=== PATIENT | female | born 1990 | race Caucasian/White ===

== ENCOUNTER 2016-10-15 06:00 | Inpatient (IN) ==
[2016-10-15 07:21] LABS: Basophils % 0.4 %; Eosinophils # 0.1 K/mcL (0.0-0.6); Eosinophils % 1.4 %; Hematocrit 33.5 % (35.3-44.9); Hemoglobin 11.4 g/dL (11.5-15.4); Immature Granulocytes % 0.6 % (0-4); Lymphocytes % 24.9 %; Mean Corpuscular Hemoglobin 30.2 pg (28.0-33.3); Mean Corpuscular Volume 88.9 fL (83.0-100.0); Mean Platelet Volume 11.1 fL (9.4-12.4); Monocytes # 0.7 K/mcL (0.0-1.3); Monocytes % 8.2 %; Neutrophils # 5.2 K/mcL (1.6-8.9); Platelet Count 219 K/mcL (140-400); Red Blood Count 3.77 M/mcL (3.82-4.97); Red Cell Distribution Width 12.4 % (11.5-14.5); Segmented Neutrophils % 64.5 %
--- NOTE | 2016-10-15 07:23 | OB/GYN History & Physical ---
Date of Encounter: 10/15/16 Time of Encounter: 07:09 Assessment and Plan (1) 39 weeks gestation of Current visit: Yes Status: Acute admit for labor and delivery NPO,supportive care continuous monitoring plan for induction of labor and vaginal delivery today pt monitoring for progression of labor (2) Elective induction of labor planned Current visit: Yes Status: Acute plan for vaginal delivery via induction monitor pt for progression of labor (3) Gestational diabetes Current visit: Yes Status: Acute well controlled with diet continue monitoring blood glucose consider repeat glucose challenge Qualifiers: Gestational diabetes mellitus control: diet-controlled Trimester: third trimester Qualified Code(s): O24.410 - Gestational diabetes mellitus in , diet controlled History of Present Illness Chief complaint: induction of labor HPI: Ms. Duffy is a 26 year old female 39.2 week here for induction of labor. Pt states she is having very weak irregular contractions occurring a 2-3x an hour and lasting about 20 seconds that are not causing much discomfort at this time. complicated by gestational diabetes that has been well controlled with diet. Pt denies current STI, but has previous history of infection with chlamydia. She has no concerns at this time. No loss of fluids, vaginal bleeding, discharge. Denies change in vision, CP, SOB, LE edema, N/V/D. Pt of , takes vitamins and denies any other medications. GBS - Hep B - rubella, t.pallidum, varicella immune Past Med Surg Social Fam HX - Past Medical History Medical history: no medical history Psychiatric history: no psych history - Past Surgical History Surgical History: no surgical history - Social History Smoking Status: Never smoker Smokeless Tobacco Status: No Alcohol use: none Drug use: none - Family History Mother Adopted: No Family Member Ethnicity: Non- Living Status: Still Living Hx Family Cardiac Disorders: No Hx Family Respiratory Disorders: No Hx Family Cancer: No Hx Family GI Disorders: No Hx Family Genitourinary Disorders: No Hx Family Endocrine Disorder: No Hx Family Musculoskeletal Disorders: No Hx Family Neuromuscular Disorders: No Hx Family Neurologic Disorders: No Hx Family HEENT Disorders: No Hx Family Autoimmune Disorders: No Hx Family Reproductive Disorders: No Hx Family Psychosocial Disorders: No Hx Family Medical Disorders: No Obstetrical History - Pregnancies : 2 Para: 1 Term: 1 : 0 Ab's: 0 Livin - History/Complications History/Complications: Gestational diabetes in this past infection with chlamydia Medications and Allergies Pnv95/Ferrous Fumarate/FA [ Caplet] 1 tab PO DAILY 10/15/16 [History] Allergies No Known Allergies Allergy (Verified 10/15/16 06:30) Review of System OB All systems PM: reviewed and no additional remarkable complaints except as stated Exam - Constitutional Constitutional: well developed, well nourished, no acute distress, average body habitus - HEENT HEENT: EOMI, Mucus Membranes Moist - Neck Neck exam: full ROM - Lungs Respiratory exam: CTAB - Cardiovascular Cardiovascular exam: RRR - Abdomen Abdomen: Present: bowel sounds normal, gravid - Extremities Extremities exam: warm Deep Tendon Reflex Grade: 2+ Normal - Cervix Dilation: 4 Station: -2 - Uterus Uterus exam: Present: normal size Results Result Diagrams: 10/15/16 06:51 All other labs normal. - VTE Reasons for not Prescribing Prophylaxis: Treatment not Indicated - Low risk for VTE - Attending Attestation I examined this patient and my medical decision-making was reviewed with the HOOKMAN/PA/Advanced Practice Nurse/Resident Physician. I agree with the documented findings, disposition and treatment plan as described except to the extent set forth below.
[2016-10-15] MEDS ORDERED: miSOPROStol 25 MCG TABLET PO SCH (08:00)
--- NOTE | 2016-10-15 09:07 | OB Labor Progress Note ---
Date of Encounter: 10/15/16 Time of Encounter: 09:05 Labor Progress Note - Subjective Subjective: Tolerating contractions well - Vital Signs Vital Signs: stable, afebrile - Cervix Cervix: 4-5/80/-1 - Heart Tones Heart Tones: 140s baseline CAT1 - [place]: every 2-3 mins after 50ug cytotec PO - Interventions Interventions: 39 week diet controlled GDM for induction of labor with cytotec - Plan Plan: continue induction amniotomy in 2-3h I examined this patient and my medical decision-making was reviewed with the VERTICAL LATHE OPERATOR/PA/Advanced Practice Nurse/Resident Physician. I agree with the documented findings, disposition and treatment plan as described except to the extent set forth below.
[2016-10-15] MEDS: Ringers Solution, Lactated 1,000 ML IVC SCH ×2 (11:10→12:23)
--- NOTE | 2016-10-15 11:54 | Anesthesia Evaluation PreOp ---
Date of Encounter: 10/15/16 Time of Encounter: 10:55 - Past History Planned Operation: epidural placement Cardiac History: Denies any Significant Hx Pulmonary History: Denies Any Significant HX DATA CONTROL CLERK SUPERVISOR History: Denies Any Significant HX Other Medical History: Other (gestational diabetes) Anesthesia History: No Prior Anesthetic Complications (vag delivery x 1) : Yes Test: Positive Alcohol Use: none Drug use: none Medications and Allergies Pnv95/Ferrous Fumarate/FA [ Caplet] 1 tab PO DAILY 10/15/16 [History] Allergies No Known Allergies Allergy (Verified 10/15/16 06:30) - Meds/Allergy Pre-op Review Medications Reviewed: Yes Allergies Reviewed: Yes Beta Blockers on Current Med List: No Anesthesia Results - Labs 10/15/16 06:51 Anesthesia Exam 3 Vital Signs Time 1055 BP 117/77 Pulse 110 Resp 16 O2 Sat Height: 66 Weight: 182 pounds NPO (# of Hours): clears Pain Scale: 5 Pain Scale Used: Numeric (1 - 10) - HEENT Pupil (Motor): Pupils equal Mallampati: II Teeth: Normal Oral Opening: Greater than 3 - DATA CONTROL CLERK SUPERVISOR LOC: Oriented DATA CONTROL CLERK SUPERVISOR Motor: Normal RUE, Normal LUE, Normal RLE, Normal LLE DATA CONTROL CLERK SUPERVISOR Sensory: Normal: RUE, LUE, RLE, LLE, Face - Cardiac Rhythm: Regular Murmur: None JVD: No Carotid Bruit: No - Pulmonary Breath Sounds: bilateral Clear Respiratory Effort: Symmetrical Anesthesia Assess/Plan ASA Score: 2 Modified [place] Scale for Level of Consciousness: Cooperative, oriented, and tranquil Anesthetic Plan: Regional Autologous Blood: No Monitoring Plan: Standard Monitors Recovery Plan: Other
[2016-10-15] MEDS ORDERED: *HR* FentaNYL (PF) 100 MCG/2 ML VIAL EP ONE (11:57)
[2016-10-15] MEDS ORDERED: Bupivacaine-MPF 0.25% 10 ML VIAL EP ONE (11:57)
[2016-10-15] MEDS ORDERED: Epidural Premix (fent/bupiv) 110 ML EP SCH (12:00)
[2016-10-15] MEDS ORDERED: *HR* FentaNYL (PF) 100 MCG/2 ML VIAL ONE ×2 (12:12→16:09)
[2016-10-15] MEDS ORDERED: Bupivacaine-MPF 0.25% 10 ML VIAL ONE (12:12)
--- NOTE | 2016-10-15 12:12 | OB Labor Progress Note ---
Date of Encounter: 10/15/16 Time of Encounter: 12:10 Labor Progress Note - Subjective Subjective: The patient is becoming uncomfortable with contractions. She is requesting an epidural - Vital Signs Vital Signs: Afebrile, vital signs stable - Cervix Cervix: 6/80/-2, vertex - Heart Tones Heart Tones: 140s baseline, CAT1 - [place]: Contractions every 2-3 minutes after 1 dose of 50 g of Cytotec at 07 100 - Interventions Interventions: 39 week IUP, A1 diabetes for induction of labor - Plan Plan: Epidural placement followed by amniotomy when stable
[2016-10-15] MEDS ORDERED: Epidural Premix (fent/bupiv) 110 ML EP ONE (12:14)
--- NOTE | 2016-10-15 13:01 | Anesthesia Procedures ---
Date of Encounter: 10/15/16 Time of Encounter: 12:25 Procedures: Anesthesia - Epidural/Spinal Patient ID/Chart reviewed: Yes Patient examined: Yes OB Eval: Gestational age: 39 weeks 2 days OB Eval: : 2 OB Eval: Hx Para: 1 OB Eval: Dilated at (cm): 4 OB Eval: Contractions: Non-stressed pattern Consent Obtained: Yes Supplemental Oxygen: None/Room Air Site Prep: Aseptic Technique, Sterile prep and drape, Povidone-Iodine 1% Patient position: upright Local Anesthetic: Lidocaine 1% Amount of Local Anesthetic used: 3 Touhy Needle Gauge: 18 Touhy Needle Depth (cm): 6 Catheter Depth at Skin (cm): 13 Test Dose (1.5% Lido + Epi): Volume given (mls): 3 Test Dose Result: Negative Loading Dose: 0.25% Marcaine (mls): 6 Loading Dose: Fentanyl (mcg): 100 Loading Dose: Other: 3 ml saline 0.9% pres free Loading Dose Administered: Thru Catheter Infusion Med: 0.125% Bupivacaine w/ 2 mcg/ml Fentanyl Infusion Rate (mls/hr): [address]: Tegaderm, Tape Interspace Used: L3-L4 Loss of Resistance (RENEE): Yes (air) Blood: No CSF: No Paresthesia: No Procedure: 3 Vital Signs Time 1225 start 1238 test 1244 bolus finish 1252 BP 128/64 121/71 123/76 120/71 Pulse 76 86 75 75 Resp 16 16 16 16 O2 Sat 100 100 100 100 heart tones 140 patient tolerated well patient comfortable
--- NOTE | 2016-10-15 13:39 | OB Labor Progress Note ---
Date of Encounter: 10/15/16 Time of Encounter: 13:37 Labor Progress Note - Subjective Subjective: Pt resting comfortably in bed with epidural. - Cervix Cervix: 6/80/-2 - Heart Tones Heart Tones: 135/moderate/+accels/no decels - Interventions Interventions: AROM for clear fluid. - Plan Plan: Continue with current management. GBS-, anticipate
[2016-10-15] MEDS ORDERED: Oxytocin 20 units/ LR 1000 mL 20 UNIT/1,000 ML BAG IVC ONE ×2 (14:42→18:14)
[2016-10-15] MEDS ORDERED: Oxytocin 20 units/ LR 1000 mL 20 UNIT/1,000 ML BAG IVC SCH (14:45)
[2016-10-15] MEDS ORDERED: *HR* Ropivacaine/PF 0.2% 10 ML AMPUL ONE (15:29)
--- NOTE | 2016-10-15 15:37 | OB Labor Progress Note ---
Date of Encounter: 10/15/16 Time of Encounter: 15:35 Labor Progress Note - Subjective Subjective: Pt reports some discomfort in her right lower abdomen. She is otherwise comfortable. - Cervix Cervix: 6-7 - Heart Tones Heart Tones: Category I - Quail Quail: 2-3 minutes - Interventions Interventions: IUPC placed - Plan Plan: Continue to monitor. Anticipate .
--- NOTE | 2016-10-15 15:56 | Anesthesia Progress Note ---
Date of Encounter: 10/15/16 Time of Encounter: 15:35 Anesthesia Note - Note Note: 10/15/16 15:51 patient complaining of right lower quadrant contraction pain. Epidural placement checked ok, sensory level noted at t12 level, bolus dose of ropivicaine 0.2% 10 ml given in 3.33 ml increments, vs stable throughout, heart tones 130-140 3 Vital Signs Time 1535 1540 1545 BP 120/77 121/89 121/75 Pulse 70 70 71 Resp 16 16 16 O2 Sat
[2016-10-15] MEDS ORDERED: Lidocaine/EPI 1:200k 2% PF 20 ML VIAL ONE (16:10)
[2016-10-15] MEDS ORDERED: Lidocaine/EPI 1:100k 1% 30 ML VIAL ONE (16:19)
--- NOTE | 2016-10-15 17:09 | OB/GYN Procedure Note ---
Delivery - Delivery Date: 10/15/16 Provider: Izabel Coleman Intrapartum events: none Delivery induction: misoprostol Delivery augmentation: rupture of membranes Delivery monitor: external FHT, external uterine, internal uterine Anesthesia: epidural Estimated Blood Loss: 100 - Infant (s) A Infant Delivery Date: 10/15/16 Infant Delivery Time: 16:38 Presentation: vertex Position: CRISTI Route of delivery: Gender: Female Viability: Viable Pounds: 6 Ounces: 15 Weight Gram: 3155 kg at 1 minute: 8 at 5 mins: 9 Shoulder Dystocia: encountered Shoulder Dystocia Maneuvers: Dalila maneuver, Stanford Screw maneuver Shoulder dystocia time elapsed: 30 sec Specimens collected: cord blood Placenta: spontaneous, uterine exploration Cord: 3 umbilical vessels - Repair Episiotomy: none Laceration Description: None - Complications Delivery complications: none Delivery comments: Patient complete and pushing with epidural anesthesia with rapid descent and a spontaneous vaginal delivery of a vigorous female infant in CRISTI position weighing 6 lbs. 15 oz. and Apgars of 8 at 1 minute and 9 at 5 minutes. No nuchal cord was palpated. Following delivery of the head the anterior shoulder was wedged against the symphysis despite Dalila maneuver. A Stanford screw maneuver was performed and the shoulder was released and was delivered spontaneously and placed on the maternal abdomen. The cord was clamped and cut after pulsations ceased. Cord blood was obtained. Placenta was delivered spontaneous and intact. No lacerations noted. Both mother and the infant are recovering in the LDR. Estimated blood loss 100 mL, complications none - Disposition Mom disposition: stable in LDR [place] disposition: stable in LDR
[2016-10-15] MEDS ORDERED: Oxytocin 20 units/ LR 1000 mL 20 UNIT/1,000 ML BAG IV SCH (18:14)
[2016-10-15] MEDS ORDERED: Measles/Mumps/Rubella Vacc 0.5 ML VIAL SQ PRN (18:14)
[2016-10-15] MEDS ORDERED: Acetaminophen 325 MG TABLET PO PRN (18:14)
[2016-10-15] MEDS: Ibuprofen 600 MG TABLET PO PRN (20:45)
[2016-10-16 05:52] LABS: Basophils % 0.3 %; Eosinophils # 0.1 K/mcL (0.0-0.6); Eosinophils % 0.8 %; Hematocrit 32.7 % (35.3-44.9); Hemoglobin 11.1 g/dL (11.5-15.4); Immature Granulocytes % 0.8 % (0-4); Immature Platelets 7.6 % (1.1-6.1); Lymphocytes # 1.9 K/mcL (0.6-4.6); Lymphocytes % 16.9 %; Mean Corpuscular HGB Conc 33.9 g/dL (31.6-35.5); Mean Corpuscular Hemoglobin 30.5 pg (28.0-33.3); Mean Corpuscular Volume 89.8 fL (83.0-100.0); Mean Platelet Volume 11.6 fL (9.4-12.4); Monocytes # 0.9 K/mcL (0.0-1.3); Monocytes % 8.1 %; Platelet Count 177 K/mcL (140-400); Red Blood Count 3.64 M/mcL (3.82-4.97); Red Cell Distribution Width 12.5 % (11.5-14.5); Segmented Neutrophils % 73.1 %
--- NOTE | 2016-10-16 07:24 | Anesthesia Progress Note ---
Date of Encounter: 10/15/16 Time of Encounter: 16:13 Anesthesia Note - Note Note: 10/16/16 07:22 bolus given for labor contraction pain, 3 ml 2% lidocine with epi and 50 mcg fentanyl pt stable
[2016-10-16] MEDS ORDERED: Prenatal Vit/FA 1 EACH TABLET PO SCH (09:00)
--- NOTE | 2016-10-16 09:01 | Discharge Summary ---
Date of Encounter: 10/16/16 Time of Encounter: 08:58 - Discharge Diagnosis (1) Vaginal delivery Priority: Primary Status: Acute Comments: Meeting milestones. Appropriate for discharge (2) Elective induction of labor planned Priority: Secondary Status: Acute - Discharge Medications Prescriptions: Ibuprofen [Motrin] 600 mg PO Q6HR PRN #60 tablet PRN Reason: Cramping Breast Pump [BREAST PUMP] 1 each .ROUTE AD #1 each Docusate [Colace] 100 mg PO BID #60 capsule Home Medications: Pnv95/Ferrous Fumarate/FA [ Caplet] 1 tab PO DAILY 10/15/16 [History] Acetaminophen [Tylenol] 650 mg PO Q6HR PRN #0 tablet 10/16/16 [Rx] Breast Pump [BREAST PUMP] 1 each .ROUTE AD #1 each 10/16/16 [Rx] Docusate [Colace] 100 mg PO BID #60 capsule 10/16/16 [Rx] Ferrous Sulfate 325 mg PO DAILY tablet 10/16/16 [Rx] Ibuprofen [Motrin] 600 mg PO Q6HR PRN #60 tablet 10/16/16 [Rx] Measles/Mumps/Rubella Vacc [MMR II Vaccine with Diluent] 0.5 ml SQ AD PRN #0 vial 10/16/16 [Rx] Allergies/Adverse Reactions: Allergies No Known Allergies Allergy (Verified 10/15/16 06:30) Data Procedures and tests throughout hospitalization: Laboratory Tests 10/15/16 10/16/16 06:51 04:01 WBC 8.0 10.9 RBC 3.77 L 3.64 L Hgb 11.4 L 11.1 L Hct 33.5 L 32.7 L MCV 88.9 89.8 MCH 30.2 30.5 MCHC 34.0 33.9 RDW 12.4 12.5 Plt Count 219 177 MPV 11.1 11.6 Immature Gran % 0.6 0.8 Seg Neutrophils % 64.5 73.1 Lymphocytes % 24.9 16.9 Monocytes % 8.2 8.1 Eosinophils % 1.4 0.8 Basophils % 0.4 0.3 Neutrophils # 5.2 8.0 Lymphocytes # 2.0 1.9 Monocytes # 0.7 0.9 Eosinophils # 0.1 0.1 Basophils # 0.0 0.0 Immature Plt Fraction 7.6 H Labs on day of discharge: Labs from last 24 hours 10/16/16 04:01 WBC 10.9 RBC 3.64 L Hgb 11.1 L Hct 32.7 L MCV 89.8 MCH 30.5 MCHC 33.9 RDW 12.5 Plt Count 177 MPV 11.6 Immature Gran % 0.8 Seg Neutrophils % 73.1 Lymphocytes % 16.9 Monocytes % 8.1 Eosinophils % 0.8 Basophils % 0.3 Neutrophils # 8.0 Lymphocytes # 1.9 Monocytes # 0.9 Eosinophils # 0.1 Basophils # 0.0 Immature Plt Fraction 7.6 H Date of admission: 10/15/16 06:06 Primary care physician: Heath Gee DO Consults: 10/15/16 18:14 Consult to Assembler Movement [CONS] Routine Comment: Vaginal delivery, consult needed Consult to Reproduction Machine Loader [CONS] Routine Reason for SW Consult: Issues with FOB. Discharging clinician: Macey Hylton Anticipated date of discharge: 10/16/16 - Patient Status Disposition: Home, Self-Care Condition: Good Functional capacity at discharge: independent ambulation - Discharge Instructions Follow Up With: Heath Gee DO [Primary Care Provider] - Izabel Coleman MD [Partnered Physician] - - Diet and Activity Activity: resume usual activities as tolerated Diet: regular diet Hospital Course Reason for admission: induction of labor Delivery: Episiotomy: none Laceration: none Other procedures: none complications: none Discharge diagnosis: IUP at term delivered baby: female Hospital course: Delivery - Delivery Date: 10/15/16 Provider: Izabel Coleman Intrapartum events: none Delivery induction: misoprostol Delivery augmentation: rupture of membranes Delivery monitor: external FHT, external uterine, internal uterine Anesthesia: epidural Estimated Blood Loss: 100 - (s) Infant A Infant Delivery Date: 10/15/16 Infant Delivery Time: 16:38 Presentation: vertex Position: CRISTI Route of delivery: Gender: Female Viability: Viable Pounds: 6 Ounces: 15 Weight Gram: 3155 kg at 1 minute: 8 at 5 mins: 9 Shoulder Dystocia: encountered Shoulder Dystocia Maneuvers: Dalila maneuver, Stanford Screw maneuver Shoulder dystocia time elapsed: 30 sec Specimens collected: cord blood Placenta: spontaneous, uterine exploration Cord: 3 umbilical vessels - Repair Episiotomy: none Laceration Description: None - Complications Delivery complications: none Delivery comments: Patient complete and pushing with epidural anesthesia with rapid descent and a spontaneous vaginal delivery of a vigorous female infant in CRISTI position weighing 6 lbs. 15 oz. and Apgars of 8 at 1 minute and 9 at 5 minutes. No nuchal cord was palpated. Following delivery of the head the anterior shoulder was wedged against the symphysis despite Dalila maneuver. A Stanford screw maneuver was performed and the shoulder was released and was delivered spontaneously and placed on the maternal abdomen. The cord was clamped and cut after pulsations ceased. Cord blood was obtained. Placenta was delivered spontaneous and intact. No lacerations noted. Both mother and the are recovering in the LDR. Estimated blood loss 100 mL, complications none - Disposition Mom disposition: stable in pp disposition: stable in pp Mother stable and appropriate for discharge Time Attestation: Total time spent providing and/or coordinating discharge services: Time Spent: Less than 30 minutes Exam - Constitutional Vitals: Temp Pulse Resp BP Pulse Ox 97.8 F 70 16 104/70 98 10/16/16 07:40 10/16/16 07:40 10/16/16 07:40 10/16/16 07:40 10/16/16 07:40 General appearance IM: A&O X 3 - Respiratory Respiratory exam: Present: CTAB - Cardiovascular Cardiovascular exam IM: Present: RRR, +S1, +S2 - Rectal Rectal exam: deferred - Uterine Tone: Firm Uterus Position: At Umbilicus - Extremities Exam Extremities exam IM: Present: normal inspection - Neurological Exam Neurological exam: normal gait, oriented X3 - Psychiatric Additional comments: reports good mood
[2016-10-16] MEDS: Ibuprofen 600 MG TABLET PO PRN (11:54)
[2016-10-16 17:02] VITALS: BP 121/75
== END 2016-10-16 17:24 | disposition home or self-care (01) | DRG 560 ==
LOC: 1NENULAB 06:06 → 1NENUOBS 19:42
PROVIDERS: ADMIT Obstetrics & Gynecology; ATTEND Obstetrics & Gynecology

== ENCOUNTER 2019-03-31 19:01 | Observation (INO) ==
[2019-03-31] MEDS ORDERED: 0.9 % Sodium Chloride 1,000 ML ONE (19:40)
[2019-03-31 19:50] LABS: Basophils % 0.5 %; Eosinophils # 0.3 K/mcL (0.0-0.6); Eosinophils % 3.4 %; Hemoglobin 12.3 g/dL (11.5-15.4); Immature Granulocytes % 0.3 % (0-4); Lymphocytes # 2.5 K/mcL (0.6-4.6); Mean Corpuscular HGB Conc 34.2 g/dL (31.6-35.5); Mean Corpuscular Hemoglobin 30.5 pg (28.0-33.3); Mean Corpuscular Volume 89.3 fL (83.0-100.0); Mean Platelet Volume 9.5 fL (9.4-12.4); Monocytes # 0.6 K/mcL (0.0-1.3); Monocytes % 6.8 %; Neutrophils # 5.4 K/mcL (1.6-8.9); Platelet Count 309 K/mcL (140-400); Red Blood Count 4.03 M/mcL (3.82-4.97); Red Cell Distribution Width 11.8 % (11.5-14.5); White Blood Count 8.8 K/mcL (4.3-11.1)
[2019-03-31 19:55] LABS: Prothrombin Time 11.2 Seconds (9.4-12.1)
[2019-03-31 20:11] VITALS: BP 128/83
[2019-03-31 20:12] LABS: BUN/Creatinine Ratio 17 (6-26); Blood Urea Nitrogen 11 mg/dL (6-20); Calcium 9.4 mg/dL (8.6-10.3); Carbon Dioxide 25 mEq/L (23-29); Chloride 105 mEq/L (98-107); Glucose 127 mg/dL (70-105); Osmolality,Calculated 287 (280-300); Potassium 3.7 mEq/L (3.5-5.1); Sodium 138 mEq/L (136-145); eGFR For African Americans > 60 (> 60); eGFR For Non-African Americans > 60 (> 60)
[2019-03-31] MEDS ORDERED: Ondansetron 4 MG/2 ML VIAL ONE (21:20)
[2019-03-31] MEDS ORDERED: Lidocaine -MPF 2% 5 ML VIAL ONE (21:20)
[2019-03-31] MEDS ORDERED: Dexamethasone 4 MG/ML VIAL ONE (21:20)
[2019-03-31] MEDS ORDERED: Propofol 500 MG/50 ML INFUS..BTL ONE (21:20)
[2019-03-31] MEDS ORDERED: *HR* FentaNYL (PF) 250 MCG/5 ML VIAL ONE (21:20)
[2019-03-31] MEDS ORDERED: *HR* Succinylcholine 200 MG/10 ML VIAL IVP ONE (21:20)
[2019-03-31 23:54] LABS: Basophils % 0.2 %; Eosinophils % 0.1 %; Hematocrit 31.3 % (35.3-44.9); Immature Granulocytes % 1.7 % (0-4); Lymphocytes # 1.5 K/mcL (0.6-4.6); Lymphocytes % 7.1 %; Mean Corpuscular HGB Conc 33.2 g/dL (31.6-35.5); Mean Corpuscular Hemoglobin 30.6 pg (28.0-33.3); Mean Corpuscular Volume 92.1 fL (83.0-100.0); Mean Platelet Volume 10.1 fL (9.4-12.4); Monocytes # 0.3 K/mcL (0.0-1.3); Monocytes % 1.5 %; Neutrophils # 18.8 K/mcL (1.6-8.9); Platelet Count 356 K/mcL (140-400); Segmented Neutrophils % 89.4 %
[2019-03-31 23:55] LABS: Hemoglobin 10.4 g/dL (11.5-15.4)
[2019-04-01 00:11] LABS: Glucose 141 mg/dL (70-105)
[2019-04-01 00:26] LABS: Alanine Aminotransferase 17 Units/L (7-52); Albumin 3.8 g/dL (3.5-5.7); Albumin/Globulin Ratio 1.7 (1.1-2.2); Alkaline Phosphatase 37 Units/L (34-104); Aspartate Amino Transferase 18 Units/L (13-39); BUN/Creatinine Ratio 17 (6-26); Bilirubin,Total 0.3 mg/dL (0.3-1.0); Blood Urea Nitrogen 11 mg/dL (6-20); Calcium 8.6 mg/dL (8.6-10.3); Carbon Dioxide 20 mEq/L (23-29); Chloride 110 mEq/L (98-107); Globulin 2.2 g/dL (2.4-3.5); Osmolality,Calculated 286 (280-300); Potassium 3.7 mEq/L (3.5-5.1); Sodium 137 mEq/L (136-145); eGFR For African Americans > 60 (> 60); eGFR For Non-African Americans > 60 (> 60)
[2019-04-01] MEDS ORDERED: 0.9 % Sodium Chloride 1,000 ML ONE (01:50)
[2019-04-01] MEDS ORDERED: 0.9 % Sodium Chloride 1,000 ML IV ONE (02:09)
[2019-04-01] MEDS ORDERED: Ringers Solution, Lactated 1,000 ML IVC SCH (03:00)
[2019-04-01 04:28] LABS: Basophils % 0.1 %; Hematocrit 27.7 % (35.3-44.9); Hemoglobin 9.4 g/dL (11.5-15.4); Immature Granulocytes % 0.5 % (0-4); Lymphocytes # 0.7 K/mcL (0.6-4.6); Lymphocytes % 5.5 %; Mean Corpuscular HGB Conc 33.9 g/dL (31.6-35.5); Mean Corpuscular Hemoglobin 30.9 pg (28.0-33.3); Mean Corpuscular Volume 91.1 fL (83.0-100.0); Mean Platelet Volume 9.9 fL (9.4-12.4); Monocytes # 0.1 K/mcL (0.0-1.3); Monocytes % 0.7 %; Neutrophils # 12.5 K/mcL (1.6-8.9); Platelet Count 258 K/mcL (140-400); Red Blood Count 3.04 M/mcL (3.82-4.97); Segmented Neutrophils % 93.2 %; White Blood Count 13.4 K/mcL (4.3-11.1)
[2019-04-01 04:46] LABS: BUN/Creatinine Ratio 18 (6-26); Blood Urea Nitrogen 10 mg/dL (6-20); Calcium 8.5 mg/dL (8.6-10.3); Carbon Dioxide 22 mEq/L (23-29); Chloride 109 mEq/L (98-107); Glucose 168 mg/dL (70-105); Magnesium 1.6 mg/dL (1.6-2.6); Osmolality,Calculated 285 (280-300); Potassium 3.9 mEq/L (3.5-5.1); Sodium 136 mEq/L (136-145); eGFR For African Americans > 60 (> 60); eGFR For Non-African Americans > 60 (> 60)
[2019-04-01 09:14] LABS: Hematocrit 27.8 % (35.3-44.9); Hemoglobin 9.1 g/dL (11.5-15.4)
[2019-04-01] MEDS ORDERED: Methylergonovine 0.2 MG/ML AMPUL IM ONE (10:39)
== END 2019-04-01 10:40 | disposition home or self-care (01) ==
LOC: EMEROOARM 19:01 → 1NENULAB 20:34 → EMEROOARM 21:35 → SUATTDRO 04-01 01:13
PROVIDERS: ADMIT Obstetrics & Gynecology; ATTEND Internal Medicine

== ENCOUNTER → 2021-01-17 13:36 | Observation (INO) | END | disposition home or self-care (01) | LOC: 1NENULAB | PROVIDERS: ADMIT Obstetrics & Gynecology; ATTEND Obstetrics & Gynecology ==

== ENCOUNTER 2021-02-28 09:47 | Inpatient (IN) ==
[2021-02-28] MEDS ORDERED: Metoclopramide 10 MG/2 ML VIAL IVP PRN (10:14)
[2021-02-28] MEDS ORDERED: *HR* Nalbuphine 10 MG/ML AMPUL IV PRN (10:14)
[2021-02-28] MEDS ORDERED: Famotidine 20 MG/2 ML VIAL IVP PRN (10:14)
[2021-02-28] MEDS ORDERED: Ondansetron 4 MG/2 ML VIAL IVP PRN (10:14)
[2021-02-28] MEDS ORDERED: Naloxone 0.4 MG/ML INJ IVP PRN (10:14)
[2021-02-28] MEDS ORDERED: Ringers Solution, Lactated 1,000 ML IVC SCH (10:15)
[2021-02-28] MEDS: Oxytocin 20 units/ LR 1000 mL 20 UNIT/1,000 ML BAG IVC SCH ×2 (10:52→20:56)
[2021-02-28 10:59] LABS: Amphetamine Screen,Urine Negative ng/mL (Cutoff=1000); Barbiturate Screen,Urine Negative ng/mL (Cutoff=200); Benzodiazepines Screen,Urine Negative ng/mL (Cutoff=200); Cannabinoid Screen,Urine Negative ng/mL (Cutoff = 50); Cocaine Screen,Urine Negative ng/mL (Cutoff= 300); Opiate Screen,Urine Negative ng/mL (Cutoff=300); Phencyclidine Screen,Urine Negative ng/mL (Cutoff=25)
[2021-02-28 11:04] LABS: Basophils % 0.4 %; Eosinophils # 0.1 K/mcL (0.0-0.6); Eosinophils % 0.8 %; Hematocrit 35.6 % (35.3-44.9); Hemoglobin 11.7 g/dL (11.5-15.4); Immature Granulocytes % 0.4 % (0-4); Lymphocytes # 1.4 K/mcL (0.6-4.6); Lymphocytes % 17.6 %; Mean Corpuscular HGB Conc 32.9 g/dL (31.6-35.5); Mean Corpuscular Hemoglobin 28.9 pg (28.0-33.3); Mean Corpuscular Volume 87.9 fL (83.0-100.0); Mean Platelet Volume 10.7 fL (9.4-12.4); Monocytes # 0.6 K/mcL (0.0-1.3); Neutrophils # 5.7 K/mcL (1.6-8.9); Platelet Count 246 K/mcL (140-400); Red Blood Count 4.05 M/mcL (3.82-4.97); Red Cell Distribution Width 12.1 % (11.5-14.5); Segmented Neutrophils % 72.8 %; White Blood Count 7.9 K/mcL (4.3-11.1)
[2021-02-28] MEDS ORDERED: EPHEDrine 50 MG/ML VIAL IVP PRN (13:07)
[2021-02-28] MEDS ORDERED: Epidural Premix (fent/bupiv) 110 ML EP SCH (13:15)
[2021-02-28] MEDS ORDERED: *HR* FentaNYL (PF) 100 MCG/2 ML VIAL ONE (15:16)
[2021-02-28] MEDS ORDERED: Measles/Mumps/Rubella Vacc 0.5 ML VIAL SQ PRN (21:16)
[2021-02-28] MEDS ORDERED: Acetaminophen 325 MG TABLET PO PRN (21:16)
[2021-02-28] MEDS ORDERED: Oxytocin 20 units/ LR 1000 mL 20 UNIT/1,000 ML BAG IVC SCH (21:16)
[2021-02-28] MEDS ORDERED: Benzocaine/Menthol 56 GM AEROSOL SPRAY TP PRN (22:38)
[2021-02-28] MEDS ORDERED: Lanolin 7 G OINT...G. TP PRN (22:39)
[2021-02-28] MEDS: Ibuprofen 600 MG TABLET PO PRN (22:40)
[2021-03-01] MEDS: Ibuprofen 600 MG TABLET PO PRN ×2 (04:50→12:52)
[2021-03-01] MEDS ORDERED: Prenatal Vit/FA 1 EACH TABLET PO SCH (09:00)
[2021-03-01 15:14] VITALS: BP 114/68
== END 2021-03-01 19:35 | disposition home or self-care (01) | DRG 560 ==
LOC: 1NENULAB 09:47 → 1NENUOBS 21:16
PROVIDERS: ADMIT Obstetrics & Gynecology; ATTEND Obstetrics & Gynecology